=== PATIENT | male | born 1970 ===

== ENCOUNTER 2019-05-30 21:06 | Emergency (ER) | payer OTHER ==
[2019-05-30] MEDS ORDERED: MORPHINE 2 MG/ML SYR ONE (21:39)
[2019-05-30] MEDS ORDERED: KETOROLAC 30 MG/ML INJ ONE (21:39)
[2019-05-30] MEDS ORDERED: NA CHLORIDE 0.9% 1,000 ML ONE (21:40)
[2019-05-30] MEDS ORDERED: ONDANSETRON 4 MG/2 ML VIAL ONE (21:40)
[2019-05-30 21:45] LABS: Absolute Lymphocytes (CBC) 2.5 K/uL (0.7-4.9); Basophils % 0.6 % (0-1.3); Lymphocytes % 37.4 % (15.3-44.8); MPV 6.9 fL (7.6-11.3); RBC Red Blood Cell Count 4.92 M/uL (4.33-5.43)
[2019-05-30 22:13] LABS: ALT/SGPT 39 U/L (12-78); AST/SGOT 24 U/L (15-37); Alkaline Phosphatase 87 U/L (45-117); BUN Blood Urea Nitrogen 16 mg/dL (7-18); Bicarbonate 26 mmol/L (21-32); Bilirubin Direct < 0.1 mg/dL (0-0.2); Bilirubin Total 0.2 mg/dL (0.2-1.0); Glucose Level 90 mg/dL (74-106); Lipase 126 U/L (73-393); Potassium 4.2 mmol/L (3.5-5.1); Protein, Total 7.8 g/dL (6.4-8.2); Sodium Level 142 mmol/L (136-145)
[2019-05-30 22:22] LABS: Urine Blood NEGATIVE (NEG); Urine Glucose NEGATIVE (NEG); Urine Protein NEGATIVE (NEG); Urine Specific Gravity >1.030 (1.005-1.030)
[2019-05-30] MEDS ORDERED: CEFTRIAXONE/SWI 1gm 1 GM/10 ML SYR ONE (23:18)
--- NOTE | 2019-05-31 01:41 | ER ---
Nurse's Notes [facility] Name: Noe Meek Age: 49 yrs Sex: Male : 1970 Arrival Date: 05/30/2019 Time: 21:07 Bed 19 Private MD: Diagnosis: Abdominal tenderness-left flank pain Presentation: 05/30 21:19 Presenting complaint: Patient states: Left flank pain radiating to left lower quadrant lp1 of abdomen on and off x 1 week; States some discomfort when urination; Denies N/V, diarrhea, constipation. Transition of care: patient was not received from another setting of care. Onset of symptoms was May 30, 2019. Risk Assessment: Do you want to hurt yourself or someone else? Patient reports no desire to harm self or others. Initial Sepsis Screen: Does the patient meet any 2 criteria? No. Patient's initial sepsis screen is negative. Does the patient have a suspected source of infection? No. Patient's initial sepsis screen is negative. Care prior to arrival: None. 21:19 Method Of Arrival: Ambulatory lp1 21:19 Acuity: AYO 3 lp1 Triage Assessment: 21:16 General: Appears in no apparent distress. uncomfortable, Behavior is calm, cooperative, cc3 appropriate for age. Pain: Complains of pain in left mid back and left low back. GI: Abdomen is flat. Historical: - Allergies: 21:21 No Known Allergies; lp1 - Home Meds: 21:21 None [Active]; lp1 - PMHx: 21:21 None; lp1 - PSHx: 21:21 None; lp1 - Immunization history:: Adult Immunizations up to date. - Social history:: Smoking status: Patient/guardian denies using tobacco. - Ebola Screening: : No symptoms or risks identified at this time. - Family history:: not pertinent. Screenin:16 Abuse screen: Denies threats or abuse. Denies injuries from another. Nutritional cc3 screening: No deficits noted. Tuberculosis screening: No symptoms or risk factors identified. Fall Risk Ambulatory Aid- None/Bed Rest/Nurse Assist (0 pts). Gait- Normal/Bed Rest/Wheelchair (0 pts) Mental Status- Oriented to own ability (0 pts). Assessment: 21:16 General: Appears in no apparent distress. uncomfortable, Behavior is calm, cooperative, cc3 appropriate for age. Pain: Complains of pain in left mid back and left low back Quality of pain is described as aching. Neuro: Level of Consciousness is awake, alert, obeys commands, Oriented to person, place, time, situation, Appropriate for age. Cardiovascular: Denies chest pain, Capillary refill < 3 seconds Patient's skin is warm and dry. Respiratory: Airway is patent Respiratory effort is even, unlabored, Respiratory pattern is regular, symmetrical. GI: Abdomen is flat, Bowel sounds present X 4 quads. Abd is soft X 4 quads Abdomen is tender to palpation in left mid back and left low back. : No signs and/or symptoms were reported regarding the genitourinary system. EENT: No signs and/or symptoms were reported regarding the EENT system. Derm: Skin is intact, is healthy with good turgor, Skin is pink, warm \T\ dry. normal. Musculoskeletal: Circulation, motion, and sensation intact. Range of motion: intact in all extremities. 22:08 Reassessment: Patient appears in no apparent distress at this time. Patient and/or cc3 family updated on plan of care and expected duration. Pain level reassessed. Patient is alert, oriented x 3, equal unlabored respirations, skin warm/dry/pink. Patient came back from CT scan department, awaiting result. 23:18 Reassessment: Patient appears in no apparent distress at this time. Patient and/or cc3 family updated on plan of care and expected duration. Pain level reassessed. Patient is alert, oriented x 3, equal unlabored respirations, skin warm/dry/pink. 08 00:20 Reassessment: Patient appears in no apparent distress at this time. Patient and/or cc3 family updated on plan of care and expected duration. Pain level reassessed. Patient is alert, oriented x 3, equal unlabored respirations, skin warm/dry/pink. Patient taken by freezer laboratory technician by enriqueta to their department for CT aorta dissection procedure. 00:45 Reassessment: Patient came back from CT scan department, awaiting result. cc3 01:16 Reassessment: Patient appears in no apparent distress at this time. Patient and/or cc3 family updated on plan of care and expected duration. Pain level reassessed. Patient is alert, oriented x 3, equal unlabored respirations, skin warm/dry/pink. Patient denies pain at this time. 02:20 Reassessment: Patient appears in no apparent distress at this time. Patient and/or cc3 family updated on plan of care and expected duration. Pain level reassessed. Patient is alert, oriented x 3, equal unlabored respirations, skin warm/dry/pink. Dr. Mario discharged the patient home with prescriptions given. IV cannula removed and patient left ER vitally stable and ambulatory with his . No valuables left in the patient's room. Patient denies pain at this time. Patient states feeling better. Patient states symptoms have improved. Vital Signs: 05/30 21:20 BP 154 / 98; Pulse 77; Resp 18; Temp 98.5(O); Pulse Ox 97% on R/A; Weight 57.61 kg; lp1 Height 5 ft. 2 in. (157.48 cm); Pain 9/10; 22:45 BP 133 / 89; Pulse 68; Resp 17 S; Pulse Ox 98% on R/A; cc3 23:30 BP 130 / 82; Pulse 72; Resp 17 S; Pulse Ox 97% on R/A; cc3 05/31 00:15 BP 124 / 79; Pulse 73; Resp 18 S; Pulse Ox 96% on R/A; cc3 01:30 BP 127 / 87; Pulse 73; Resp 16 S; Pulse Ox 97% on R/A; cc3 02:15 BP 123 / 79; Pulse 75; Resp 17 S; Pulse Ox 98% on R/A; cc3 05/30 21:20 Body Mass Index 23.23 (57.61 kg, 157.48 cm) lp1 ED Course: 05/30 21:07 Patient arrived in ED. ag3 21:16 Reina Baltazar is Primary Nurse. cc3 21:16 Patient has correct armband on for positive identification. Placed in gown. Bed in low cc3 position. Call light in reach. Side rails up X 1. Pulse ox on. NIBP on. 21:20 Triage completed. lp1 21:21 Ricardo Mario MD is Attending Physician. [facility] 21:21 Arm band placed on left wrist. lp1 21:25 Inserted saline lock: 20 gauge in right antecubital area, using aseptic technique. cc3 Blood collected. 22:02 CT completed. Patient tolerated procedure well. Patient moved back from CT. mw3 22:17 CT Stone Protocol In Process Unspecified. EDMS 22:51 Chest Single View XRAY In Process Unspecified. EDMS 05/31 01:00 CT Aorta for Dissection In Process Unspecified. EDMS 01:39 Nam Brown MD is Referral Physician. rajat 02:20 No provider procedures requiring assistance completed. IV discontinued, intact, cc3 bleeding controlled, No redness/swelling at site. Pressure dressing applied. Administered Medications: 05/30 21:45 Drug: NS 0.9% 1000 ml Route: IV; Rate: 1 bolus; Site: right antecubital; cc3 23:00 Follow up: Response: No adverse reaction; IV Status: Completed infusion; IV Intake: cc3 1000ml 21:45 Drug: morphine 2 mg Route: IVP; Site: right antecubital; cc3 22:15 Follow up: Response: No adverse reaction; Pain is decreased cc3 21:50 Drug: Zofran 4 mg Route: IVP; Site: right antecubital; cc3 22:15 Follow up: Response: No adverse reaction; Nausea is decreased cc3 21:55 Drug: TORadol 30 mg Route: IVP; Site: right antecubital; cc3 22:15 Follow up: Response: No adverse reaction; Pain is decreased cc3 23:25 Drug: Rocephin 1 grams Route: IV; Rate: per protocol; Site: right antecubital; cc3 23:35 Follow up: Response: No adverse reaction; IV Status: Completed infusion; IV Intake: [id number] Intake: 23:00 IV: 1000ml; Total: 1000ml. cc3 23:35 IV: 10ml; Total: 1010ml. cc3 Outcome: 05/31 01:39 Discharge ordered by . rajat 02:20 Discharged to home ambulatory, with family. cc3 02:20 Condition: stable 02:20 Discharge instructions given to patient, family, Instructed on discharge instructions, follow up and referral plans. medication usage, Demonstrated understanding of instructions, follow-up care, medications, Prescriptions given X 4. 02:28 Patient left the ED. cc3 Signatures: Dispatcher [employer] Ricardo Armstrong MD MD cha Pena, Laura, RN RN lp1 Kaye Quinones mw3 Reina Baltazar cc3 Nicholson, Jasmyne ag3
--- NOTE | 2019-05-31 01:42 | EDPHYS ---
Physician Documentation [facility] Name: Noe Meek Age: 49 yrs Sex: Male : 1970 Arrival Date: 05/30/2019 Time: 21:07 Bed 19 Private MD: ED Physician Ricardo Mario HPI: 05/30 21:28 This 49 yrs old Male presents to ER via Ambulatory with complaints of Abdominal rajat Pain. 21:28 The patient complains of pain in the left low back and left mid back. The pain radiates rajat to the left low back and left mid back. Onset: The symptoms/episode began/occurred 5 day(s) ago. Modifying factors: The symptoms are alleviated by nothing. the symptoms are aggravated by nothing. The patient presents with pain that is acute, with no known mechanism of injury. The symptoms are located in the low back. Onset: The symptoms/episode began/occurred 5 day(s) ago. Associated signs and symptoms: The patient has no apparent associated signs or symptoms, Pertinent positives: abdominal pain. Historical: - Allergies: 21:21 No Known Allergies; lp1 - Home Meds: 21:21 None [Active]; lp1 - PMHx: 21:21 None; lp1 - PSHx: 21:21 None; lp1 - Immunization history:: Adult Immunizations up to date. - Social history:: Smoking status: Patient/guardian denies using tobacco. - Ebola Screening: : No symptoms or risks identified at this time. - Family history:: not pertinent. ROS: 21:28 Constitutional: Negative for fever, chills, and weight loss, Eyes: Negative for injury, rajat pain, redness, and discharge, ENT: Negative for injury, pain, and discharge, Neck: Negative for injury, pain, and swelling, Cardiovascular: Negative for chest pain, palpitations, and edema, Respiratory: Negative for shortness of breath, cough, wheezing, and pleuritic chest pain, Abdomen/GI: Negative for abdominal pain, nausea, vomiting, diarrhea, and constipation, : Negative for injury, bleeding, discharge, and swelling, MS/Extremity: Negative for injury and deformity, Skin: Negative for injury, rash, and discoloration, Neuro: Negative for headache, weakness, numbness, tingling, and seizure, Psych: Negative for depression, anxiety, suicide ideation, homicidal ideation, and hallucinations, Allergy/Immunology: Negative for hives, rash, and allergies, Endocrine: Negative for neck swelling, polydipsia, polyuria, polyphagia, and marked weight changes, Hematologic/Lymphatic: Negative for swollen nodes, abnormal bleeding, and unusual bruising. 21:28 Back: Positive for pain at rest, pain with movement, flank pain, on the left. Exam: 21:28 Constitutional: This is a well developed, well nourished patient who is awake, alert, rajat and in no acute distress. Head/Face: Normocephalic, atraumatic. Eyes: Pupils equal round and reactive to light, extra-ocular motions intact. Lids and lashes normal. Conjunctiva and sclera are non-icteric and not injected. Cornea within normal limits. Periorbital areas with no swelling, redness, or edema. ENT: Nares patent. No nasal discharge, no septal abnormalities noted. Tympanic membranes are normal and external auditory canals are clear. Oropharynx with no redness, swelling, or masses, exudates, or evidence of obstruction, uvula midline. Mucous membranes moist. Neck: Trachea midline, no thyromegaly or masses palpated, and no cervical lymphadenopathy. Supple, full range of motion without nuchal rigidity, or vertebral point tenderness. No Meningismus. Chest/axilla: Normal chest wall appearance and motion. Nontender with no deformity. No lesions are appreciated. Cardiovascular: Regular rate and rhythm with a normal S1 and S2. No gallops, murmurs, or rubs. Normal PMI, no JVD. No pulse deficits. Respiratory: Lungs have equal breath sounds bilaterally, clear to auscultation and percussion. No rales, rhonchi or wheezes noted. No increased work of breathing, no retractions or nasal flaring. Abdomen/GI: Soft, non-tender, with normal bowel sounds. No distension or tympany. No guarding or rebound. No evidence of tenderness throughout. Male : Normal genitalia with no discharge or lesions. Skin: Warm, dry with normal turgor. Normal color with no rashes, no lesions, and no evidence of cellulitis. MS/ Extremity: Pulses equal, no cyanosis. Neurovascular intact. Full, normal range of motion. Neuro: Awake and alert, GCS 15, oriented to person, place, time, and situation. Cranial nerves II-XII grossly intact. Motor strength 5/5 in all extremities. Sensory grossly intact. Cerebellar exam normal. Normal gait. Psych: Awake, alert, with orientation to person, place and time. Behavior, mood, and affect are within normal limits. 21:28 Back: pain, that is mild, ROM is normal, normal spinal alignment noted, CVA tenderness, that is moderate, is noted on the left. 05/31 00:00 Skin: no rash present[facility] Vital Signs: 05/30 21:20 BP 154 / 98; Pulse 77; Resp 18; Temp 98.5(O); Pulse Ox 97% on R/A; Weight 57.61 kg; lp1 Height 5 ft. 2 in. (157.48 cm); Pain 9/10; 22:45 BP 133 / 89; Pulse 68; Resp 17 S; Pulse Ox 98% on R/A; cc3 23:30 BP 130 / 82; Pulse 72; Resp 17 S; Pulse Ox 97% on R/A; cc3 05/31 00:15 BP 124 / 79; Pulse 73; Resp 18 S; Pulse Ox 96% on R/A; cc3 01:30 BP 127 / 87; Pulse 73; Resp 16 S; Pulse Ox 97% on R/A; cc3 02:15 BP 123 / 79; Pulse 75; Resp 17 S; Pulse Ox 98% on R/A; cc3 05/30 21:20 Body Mass Index 23.23 (57.61 kg, 157.48 cm) lp1 MDM: 05/30 21:21 [facility] medically screened[facility] 21:33 Data reviewed: vital signs, nurses notes, lab test result(s), radiologic studies, CT rajat scan. 05/30 21:28 Order name: Basic Metabolic Panel; Complete Time: 22:28 [facility] 05/30 21:28 Order name: CBC with Diff; Complete Time: 21:51 [facility] 05/30 21:28 Order name: Creatinine for Radiology; Complete Time: 22:28 [facility] 05/30 21:28 Order name: Hepatic Function; Complete Time: 22:28 [facility] 05/30 21:28 Order name: Lipase; Complete Time: 22:28 [facility] 05/30 21:28 Order name: Urine Culture [facility] 05/30 21:28 Order name: CT Stone Protocol [facility] 05/30 22:03 Order name: Urine Dipstick--Ancillary (enter results) ar5 05/30 22:29 Order name: Chest Single View XRAY [facility] 05/30 23:09 Order name: CT Aorta for Dissection [facility] 05/30 21:28 Order name: IV Saline Lock; Complete Time: 21:31 [facility] 05/30 21:28 Order name: Labs collected and sent; Complete Time: 22:04 [facility] 05/30 21:28 Order name: Urine Dipstick-Ancillary (obtain specimen); Complete Time: 22:03 [facility] Administered Medications: 21:45 Drug: NS 0.9% 1000 ml Route: IV; Rate: 1 bolus; Site: right antecubital; cc3 23:00 Follow up: Response: No adverse reaction; IV Status: Completed infusion; IV Intake: cc3 1000ml 21:45 Drug: morphine 2 mg Route: IVP; Site: right antecubital; cc3 22:15 Follow up: Response: No adverse reaction; Pain is decreased cc3 21:50 Drug: Zofran 4 mg Route: IVP; Site: right antecubital; cc3 22:15 Follow up: Response: No adverse reaction; Nausea is decreased cc3 21:55 Drug: TORadol 30 mg Route: IVP; Site: right antecubital; cc3 22:15 Follow up: Response: No adverse reaction; Pain is decreased cc3 23:25 Drug: Rocephin 1 grams Route: IV; Rate: per protocol; Site: right antecubital; cc3 23:35 Follow up: Response: No adverse reaction; IV Status: Completed infusion; IV Intake: [id number] Disposition: 05/31/19 01:39 Discharged to Home. Impression: Abdominal tenderness - left flank pain. - Condition is Stable. - Discharge Instructions: Abdominal Pain, Adult, Kidney Stones, Kidney Stones, [id number], Abdominal Pain, Adult, [id number]. - Prescriptions for Tylenol- Codeine #3 300-30 mg Oral Tablet - take 2 tablets by ORAL route every 6 hours As needed; 20 tablet. Zofran 4 mg Oral Tablet - take 1 tablet by ORAL route every 12 hours As needed; 20 tablet. Bactrim DS 800- 160 mg Oral Tablet - take 1 tablet by ORAL route every 12 hours for 7 days; 14 tablet. Motrin IB 200 mg Oral Tablet - take 2 tablet by ORAL route every 6 hours As needed as needed with food; 30 tablet. - Medication Reconciliation Form, Thank You Letter, Antibiotic Education, Prescription Opioid Use form. - Follow up: Private Physician; When: 2 - 3 days; Reason: Recheck today's complaints, Continuance of care, Re-evaluation by your physician. Follow up: Nam Brown; When: 2 - 3 days; Reason: Recheck today's complaints, Continuance of care, Re-evaluation by your physician. - Problem is new. - Symptoms have improved. Signatures: Dispatcher [employer] EDMS Ricardo Mario MD MD cha Pena, Laura RN RN lp1 Reina Baltazar cc3 Corrections: (The following items were deleted from the chart) 05/31 02:28 01:39 05/31/2019 01:39 Discharged to Home. Impression: Abdominal tenderness - left cc3 flank pain. Condition is Stable. Discharge Instructions: Abdominal Pain, Adult, Kidney Stones, Kidney Stones, [id number], Abdominal Pain, Adult, [id number]. Prescriptions for Tylenol-Codeine #3 300-30 mg Oral Tablet - take 2 tablets by ORAL route every 6 hours As needed; 20 tablet, Zofran 4 mg Oral Tablet - take 1 tablet by ORAL route every 12 hours As needed; 20 tablet, Bactrim DS 800-160 mg Oral Tablet - take 1 tablet by ORAL route every 12 hours for 7 days; 14 tablet. and Forms are Medication Reconciliation Form, Thank You Letter, Antibiotic Education, Prescription Opioid Use. Follow up: Private Physician; When: 2 - 3 days; Reason: Recheck today's complaints, Continuance of care, Re-evaluation by your physician. Follow up: Nam Brown; When: 2 - 3 days; Reason: Recheck today's complaints, Continuance of care, Re-evaluation by your physician. Problem is new. Symptoms have improved. rajat
--- NOTE | 2019-05-31 08:21 | RAD REPORT ---
EXAM DESCRIPTION: RAD - Chest Single View - 05/30/2019 10:51 pm CLINICAL HISTORY: Dysuria, left flank pain, abdominal pain COMPARISON: None. TECHNIQUE: AP portable chest image was obtained 2241 hours . FINDINGS: Lungs are clear. Heart and vasculature are normal. No measurable pleural effusion and no p neumothorax. No acute bony abnormality seen. No acute aortic findings suspected. IMPRESSION: No acute cardiopulmonary process.
--- NOTE | 2019-05-31 12:42 | RAD REPORT ---
EXAM DESCRIPTION: CT - Angio Aorta For Dissection - 05/31/2019 2:33 am CLINICAL HISTORY: Left flank pain. Back pain.. COMPARISON: None. TECHNIQUE: CT angiogram of the chest, abdomen, and pelvis with IV contrast. 3-D MIP images were obta ined in coronal and sagittal reconstructions in post-processing. This exam was performed according to our departmental dose-optimization program, which includes automated exposure control, adjustment of the mA and/or kV according to patient size and/or use of iterative reconstruction technique. FINDINGS: The thyroid gland is unremarkable. No mediastinal or hilar adenopathy. The heart size is n ormal without pericardial effusion. No consolidation, pleural effusion, or pneumothorax. The liver, spleen, pancreas, gallbladder, adrenal glands, and kidneys are unremarkable. There is a si mple cyst in the left kidney. No hydronephrosis or urinary stones are seen. The pelvic organs are unr emarkable. No small bowel obstruction. The appendix is normal. No intraperitoneal free fluid or free air. There is no aortic aneurysm or dissection. No filling defects are seen in the main pulmonary arteries or the segmental branches. No acute bony findings are seen. IMPRESSION: 1. No aortic aneurysm or dissection. 2. No urinary stones or hydronephrosis. Electronically signed by: Isai Stacy MD 05/31/2019 1:28 AM CDT Due to temporary technical issues with the PACS/Fluency reporting system, reports are being signed by the in house radiologist as a courtesy to ensure prompt reporting. The interpreting radiologist is f ully responsible for the content of the report.
--- NOTE | 2019-05-31 12:43 | RAD REPORT ---
EXAM DESCRIPTION: CT - Stone Protocol - 05/30/2019 11:01 pm CLINICAL HISTORY: The patient is 49 years old and is Male; Abd pain;Flank pain TECHNIQUE: Axial computed tomography images of the abdomen and pelvis without intravenous contrast. Sagittal and coronal reformatted images were created and reviewed. This CT exam was performed usi ng one or more of the following dose reduction techniques: automated exposure control, adjustment o f the mA and/or kV according to patient size, and/or use of iterative reconstruction technique. COMPARISON: No relevant prior studies available. FINDINGS: LUNG BASES: Unremarkable. No mass. No consolidation. ABDOMEN: LIVER: Homogeneous without focal mass. GALLBLADDER AND BILE DUCTS: The gallbladder is contracted. PANCREAS: Unremarkable. No ductal dilation. SPLEEN: Unremarkable. ADRENALS: Unremarkable. No mass. KIDNEYS AND URETERS: A right intrarenal calcification is present. There is no hydronephrosis or hydroureter of either kidney. No obstructing renal or ureteral calculus is seen. A 2.9 x 2.7 cm exoph ytic left renal lesion is present. STOMACH AND BOWEL: The stomach is distended with food contents. The small bowel is normal in angelique iber. Stool is present throughout colon. There is no mucosal thickening or evidence of bowel obstruct ion. PELVIS: APPENDIX: The appendix is normal in caliber without surrounding inflammation. BLADDER: The bladder is not well distended. REPRODUCTIVE: Unremarkable as visualized. ABDOMEN and PELVIS: INTRAPERITONEAL SPACE: Unremarkable. No free air. No significant fluid collection. BONES/JOINTS: No acute fracture. SOFT TISSUES: The soft tissues are normal. VASCULATURE: Unremarkable. No abdominal aortic aneurysm. LYMPH NODES: Unremarkable. No enlarged lymph nodes. IMPRESSION: 1. Right nephrolithiasis without obstruction. 2. Exophytic upper pole left renal lesion which is not clearly a cyst. Nonemergent renal protocol C T or MRI is recommended for further evaluation. Electronically signed by: Catherine Cason MD 05/30/2019 10:34 PM CDT Due to temporary technical issues with the PACS/Fluency reporting system, reports are being signed by the in house radiologist as a courtesy to ensure prompt reporting. The interpreting radiologist is f ully responsible for the content of the report.
== END 2019-05-31 02:28 | disposition home or self-care (01) ==
LOC: EDSEX 21:06 → ER 21:06
DX: R10.9 Unspecified abdominal pain (principal)
CPT/HCPCS: 96361; 87088; 85025; 87086; 80048; 36415; 80076; 81003; 83690; 76377; 71275; 74175; 74176; 71045; 96375; 96374; 99284; Q9967; J2270; J0696; J7030; J2405